=== PATIENT | female | born 1955 | race Caucasian/White ===

== ENCOUNTER → 2017-07-08 | Day surgery (SDC) | payer OTHER ==
[~2017-07-08] MED LIST: LIDOCAINE 2% PF Vial for OR 5 ML VIAL.; PROPOFOL 20 ML IV; SODIUM PHOSPHATES 19/7GM 133 ML ENEMA.
[2017-07-08] MEDS: SODIUM PHOSPHATES 19/7GM 133 ML ENEMA. PR (07:54)
[2017-07-08] MEDS: IV RINGERS,LACTATED 1000ML 1,000 ML IV (07:54)
== END | disposition home or self-care (01) ==
LOC: SURG 07:07
DX: Z12.11 Encounter for screening for malignant neoplasm of colon (principal); K64.0 First degree hemorrhoids; Z82.49 Family history of ischemic heart disease and other diseases of the circulatory system; Z87.891 Personal history of nicotine dependence; Z90.710 Acquired absence of both cervix and uterus
CPT/HCPCS: 45378; J2704